=== PATIENT | male | born 1985 ===

== ENCOUNTER 2022-09-13 13:47 | Emergency (ER) | payer SELFPAY ==
[~2022-09-13] VITALS: Ht 177.8 cm; Wt 90.9 kg
[2022-09-13 14:33] VITALS: BP 115/89
[2022-09-13] MEDS ORDERED: PERTUSS(ACELL),DIPH,TET VAC/PF 0.5 ML SYRINGE IM. ONE (16:30)
== END 2022-09-13 17:13 | disposition home or self-care (01) ==
LOC: EMS 13:47
DX: S69.91XA Unspecified injury of right wrist, hand and finger(s), initial encounter (principal); F10.20 Alcohol dependence, uncomplicated; F12.90 Cannabis use, unspecified, uncomplicated; W29.2XXA Contact with other powered household machinery, initial encounter; Y93.89 Activity, other specified; Y92.89 Other specified places as the place of occurrence of the external cause; Y99.8 Other external cause status
CPT/HCPCS: 90471; 90715; 99283